=== PATIENT | female | born 1955 | race Caucasian/White ===

== ENCOUNTER 2021-04-26 16:57 | Emergency (ER) | payer MEDICARE ==
[~2021-04-26] VITALS: Ht 165.1 cm; Wt 71.7 kg
[2021-04-26] MEDS ORDERED: ASPIRIN81 MG PO (17:22)
[2021-04-26] MEDS ORDERED: COZAAR25 MG PO (17:22)
[2021-04-26] MEDS ORDERED: CARBATROL200 MG PO (17:23)
[2021-04-26] MEDS ORDERED: SYNTHROID25 MCG PO (17:23)
[2021-04-26] MEDS ORDERED: GABAPENTIN600 MG PO (17:24)
[2021-04-26] MEDS ORDERED: ROSUVASTATIN CA10 MG PO (17:25)
[2021-04-26] MEDS ORDERED: HYDROCODON-ACE1 EA10 PO (18:56)
== END 2021-04-26 19:13 | disposition home or self-care (01) ==
LOC: ED 16:57
DX: S86.912A Strain of unspecified muscle(s) and tendon(s) at lower leg level, left leg, initial encounter (principal); X58.XXXA Exposure to other specified factors, initial encounter; E03.9 Hypothyroidism, unspecified; Z79.899 Other long term (current) drug therapy; Z79.82 Long term (current) use of aspirin
CPT/HCPCS: 80048; 82553; 84484; 85025; 93005; 93010; 93971; 99284-25